=== PATIENT | male | born 1980 | race Caucasian/White ===

== ENCOUNTER 2018-12-30 11:07 | Emergency (ER) | payer BC, MEDICARE ==
[~2018-12-30] VITALS: Ht 167.6 cm; Wt 56.7 kg
[~2018-12-30 11:07] MED LIST: ONDA8TAB9 SUBD
[2018-12-30] MEDS ORDERED: PANTOPRAZOLE SODIUM 40 MG VIAL IV ONE (11:45)
[2018-12-30] MEDS ORDERED: HYDROMORPHONE 1 MG/1 ML DISP.SYRIN IV ONE (11:45)
[2018-12-30] MEDS ORDERED: ONDANSETRON 4 MG/2 ML VIAL IV ONE (11:45)
[2018-12-30] MEDS ORDERED: IV NORMAL SALINE 1000 ML BAG IV ONE (11:45)
[2018-12-30] MEDS ORDERED: ONDANSETRON 4 MG/2 ML VIAL ONE ×2 (11:56→12:54)
[2018-12-30] MEDS ORDERED: HYDROMORPHONE 1 MG/1 ML DISP.SYRIN ONE (11:56)
[2018-12-30] MEDS ORDERED: PANTOPRAZOLE SODIUM 40 MG VIAL ONE (11:56)
[2018-12-30 12:14] LABS: BASOPHILS % (AUTO) 0.2 % (0.0-2.0); HEMATOCRIT 47.1 % (36.7-47.1); LYMPHOCYTES # (AUTO) 0.3 K/uL (20.0-40.0); LYMPHOCYTES % (AUTO) 2.6 % (20.5-51.5); MEAN CORPUSCULAR HEMOGLOBIN 28.3 uug (23.8-33.4); MEAN CORPUSCULAR HGB CONC 34 g/dL (32.5-36.3); MEAN CORPUSCULAR VOLUME 83.1 fL (73.0-96.2); MONOCYTES # (AUTO) 0.6 K/uL (2.0-10.0); MONOCYTES % (AUTO) 4.7 % (0.0-11.0); NEUTROPHILS # (AUTO) 11.9 K/uL (1.8-8.9); NEUTROPHILS % (AUTO) 92.5 % (38.5-71.5); PLATELET COUNT (AUTO) 206 K/uL (152-348); RED BLOOD CELL COUNT(AUTO) 5.67 MIL/uL (4.06-5.63); WHITE BLOOD COUNT (AUTO) 12.8 K/uL (3.6-10.2)
[2018-12-30 12:18] LABS: CREATININE 1.5 mg/dL (0.6-1.3); POTASSIUM 3.5 mmol/L (3.5-5.1)
[2018-12-30 12:24] LABS: BILIRUBIN,DIRECT 0.2 mg/dL (0.0-0.2); BILIRUBIN,TOTAL 0.6 mg/dL (0.2-1.0); TOTAL PROTEIN, SERUM 8.5 g/dL (6.4-8.2)
[2018-12-30] MEDS ORDERED: ONDANSETRON IV *ER 4 MG/2 ML VIAL IV ONE (13:00)
--- NOTE | 2018-12-30 13:09 | NUR ---
Patient discharged to home in stable conditon. Written and verbal after care instructions given. Patient verbalizes understanding of instructions.
--- NOTE | 2018-12-30 13:09 | NUR ---
IV removed. Catheter intact and site benign. Pressure and 4x4 gauze applied to site. No bleeding noted.
== END 2018-12-30 13:10 | disposition home or self-care (01) ==
LOC: ER 11:07
DX: K52.9 Noninfective gastroenteritis and colitis, unspecified (principal); K21.9 Gastro-esophageal reflux disease without esophagitis; Z90.49 Acquired absence of other specified parts of digestive tract; Z88.1 Allergy status to other antibiotic agents; Z91.041 Radiographic dye allergy status; Z79.899 Other long term (current) drug therapy
CPT/HCPCS: 36415; 74176; 80048; 80076; 83690; 85025; 96361; 96374; 96375; 96376; 99284; C9113; J1170; J2405 ×2; A4663; J7030